=== PATIENT | male | born 1980 | race Hispanic/Latino ===

== ENCOUNTER 2019-04-20 15:16 | Emergency (ER) | payer SELFPAY ==
[2019-04-20] MEDS ORDERED: ASPIRIN 325 MG TAB PO ONE (15:45)
[2019-04-20 16:16] LABS: BASO # 0.1 10^3/uL (0.0-0.2); BASO % 0.6 % (0.0-1.0); EOS # 0.9 10^3/uL (0.0-0.50); EOS % 10.1 % (0.0-3.0); HEMATOCRIT 46.4 % (42.0-52.0); HEMOGLOBIN 15.4 g/dl (13.5-17.5); LYMPH # 1.9 10^3/uL (1.5-4.5); LYMPH % 21.2 % (24.0-44.0); MEAN CORPUSCULAR HEMOGLOBIN 29.2 pg (27.0-33.0); MEAN CORPUSCULAR HGB CONC 33.2 g/dl (32.0-36.5); MONO # 0.7 10^3/uL (0.0-0.8); MONO % 8.5 % (0.0-5.0); NEUTROPHILS # 5.2 10^3/uL (1.8-7.7); PLATELET COUNT, AUTOMATED 247 10^3/uL (150-450); RED BLOOD COUNT 5.27 10^6/uL (4.30-6.10); WHITE BLOOD COUNT 8.7 10^3/uL (4.0-10.0)
[2019-04-20 16:28] LABS: INR 0.87; PROTHROMBIN TIME 11.9 SECONDS (12.1-14.4)
[2019-04-20 16:44] LABS: BLOOD UREA NITROGEN 11 MG/DL (7-18); CALCIUM LEVEL 8.8 MG/DL (8.5-10.1); CARBON DIOXIDE LEVEL 26 MEQ/L (21-32); CHLORIDE LEVEL 106 MEQ/L (98-107); CK-MB VALUE MASS 1.9 NG/ML (<3.6); CPK CREATINE PHOSPHOKINASE 167 U/L (39-308); CREATININE FOR GFR 0.79 MG/DL (0.70-1.30); GLOMERULAR FILTRATION RATE > 60.0 (>60); GLUCOSE, FASTING 102 MG/DL (70-100); MB/CK RELATIVE INDEX 1.14 (< OR =4); POTASSIUM SERUM 4.2 MEQ/L (3.5-5.1); SODIUM LEVEL 140 MEQ/L (136-145); TROPONIN I < 0.02 NG/ML (< 0.10)
[2019-04-20] MEDS ORDERED: NAPR-837 PO (16:58)
[2019-04-20 17:00] VITALS: BP 133/86
--- NOTE | 2019-04-20 18:36 | REP ---
REASON: Chest pain. PRIORS: None. The technique utilized in obtaining the radiograph has magnified the cardiac silhouette and accentuated the interstitial markings. FINDINGS: The superior mediastinal structures are midline. The cardiac silhouette is unremarkable in size, shape, and position. The diaphragmatic surfaces of the lungs are regular, and the costophrenic angles are clear. The pulmonary parra are clear. The imaged osseous structures are intact. IMPRESSION: There is no acute cardiopulmonary disease. Electronically Signed by Pravin Hernandez DO 04/23/2019 12:54 P
--- NOTE | 2019-04-21 08:59 | ECGEPIP ---
[facility] - ED Test Date: 2019-04-20 Pat Name: DANIEL SCHMITT Department: Room: - Gender: Male Molder Vacuum: teresa : 1980 Requested By: Nicole Deleon Order Number: [id number] Reading MD: Rex Fuentes Measurements Intervals [place] Rate: 68 P: 48 NC: 156 QRS: 53 QRSD: 96 T: 34 QT: 361 QTc: 385 Interpretive Statements SINUS RHYTHM Comparison tracing not on file Electronically Signed on 04-21-2019 8:59:11 EDT by Rex Fuentes
== END 2019-04-20 17:20 | disposition home or self-care (01) ==
LOC: M ED 15:16
DX: R09.1 Pleurisy (principal)